=== PATIENT | female | born 1950 | race Hispanic/Latino ===

== ENCOUNTER → 2017-12-11 | Outpatient (CLI) | payer OTHER, MEDICARE ==
[~2017-12-11] MED LIST: ASPI-1012 PO; ATOR40TA71 PO; CHOL100040 PO; GLUC15006 PO; HYDR-309 PO; LOSA100T29 PO; TRAM50TA4 PO
== END | disposition home or self-care (01) ==
LOC: RAH 10:19
PROVIDERS: ATTEND Family Medicine
DX: Z01.812 Encounter for preprocedural laboratory examination (principal)
CPT/HCPCS: 71046

== ENCOUNTER 2017-12-25 07:38 | Observation (INO) | payer OTHER, MEDICARE ==
[2017-12-24 15:10] LABS: APPEARANCE,URINE Clear (CLEAR); BILIRUBIN,URINE Negative (NEGATIVE); COLOR,URINE Yellow (YELLOW); GLUCOSE, URINE (UA) Negative (NEGATIVE); KETONES,URINE Negative (NEGATIVE); LEUKOCYTE ESTERASE ,URINE Small (NEGATIVE); NITRATE,URINE Negative (NEGATIVE); OCCULT BLOOD,URINE Moderate (NEGATIVE); PROTEIN,URINE Negative (NEGATIVE)
[2017-12-24 15:29] VITALS: BP 145/70
[2017-12-24 15:40] LABS: BACTERIA,URINE Few /HPF (None Seen); RBC,URINE 0-1 /HPF (0-1); SQUAMOUS EPITHELIAL CELL,UR 0-2 /HPF (0-2); WBC,URINE 0-1 /HPF (0-1)
[2017-12-25] VITALS (23 sets, daily range): BP systolic 111–154; BP diastolic 56–74
[~2017-12-25] VITALS: Ht 153.7 cm; Wt 65.9 kg
[~2017-12-25 07:38] MED LIST changes: -ASPI-1012 PO; -HYDR-309 PO
[2017-12-25] MEDS ORDERED: LACTATED RINGERS 1000ML 1,000 ML IV ONE (08:00)
[2017-12-25] MEDS ORDERED: WATER FOR INJECTION,STERILE 20 ML VIAL IJ ONE (08:00)
[2017-12-25] MEDS: CEFAZOLIN SODIUM 1 GM VIAL IVP ONE ×2 (08:18→10:45)
[2017-12-25] MEDS ORDERED: CELECOXIB 200 MG CAP ONE (08:24)
[2017-12-25] MEDS ORDERED: ACETAMINOPHEN EXTRA STRENGTH 500 MG TABLET ONE (08:24)
[2017-12-25] MEDS ORDERED: METOCLOPRAMIDE 10 MG/2 ML VIAL ONE (08:24)
[2017-12-25] MEDS ORDERED: OXYCODONE HCL 10 MG TAB.SR.12H PO ONE (08:25)
[2017-12-25] MEDS ORDERED: CEFAZOLIN SODIUM 1 GM VIAL ONE (08:30)
[2017-12-25] MEDS ORDERED: TRANEXAMIC ACID 1000MG/10ML IV ONE (08:30)
[2017-12-25] MEDS: BUPIVACAINE/EPI/PF 0.25% 30ML VIAL IJ SCH ×2 (09:15→11:22)
[2017-12-25] MEDS ORDERED: FENTANYL CITRATE PF 50 MCG/1 ML 2ML VIAL ONE ×2 (09:51→11:08)
[2017-12-25] MEDS ORDERED: LIDOCAINE PF 2% 5ML ABBOJECT ONE (09:51)
[2017-12-25] MEDS ORDERED: DEXAMETHASONE SOD PHOSPHATE 10MG/ML 1ML VIAL ONE (09:51)
[2017-12-25] MEDS ORDERED: ONDANSETRON HCL 4 MG/2 ML VIAL ONE (09:51)
[2017-12-25] MEDS ORDERED: NEOSTIGMINE 5MG/5ML SYR IV ONE (09:51)
[2017-12-25] MEDS ORDERED: PROPOFOL 10 MG/ML 20ML VIAL IV ONE (09:51)
[2017-12-25] MEDS ORDERED: GLYCOPYRROLATE 0.2 MG/ML 5 ML VIAL ONE (09:51)
[2017-12-25] MEDS ORDERED: MIDAZOLAM HCL 1 MG/ML 2ML VIAL ONE (09:52)
[2017-12-25] MEDS ORDERED: METOPROLOL TARTRATE 1 MG/ML 5ML VIAL IV ONE (11:27)
[2017-12-25] MEDS ORDERED: POTASSIUM CHLORIDE 20MEQ/100ML 100 ML IV PRN (12:30)
[2017-12-25] MEDS ORDERED: CALCIUM CARBONATE 500 MG TABLET PO PRN (12:30)
[2017-12-25] MEDS ORDERED: POTASSIUM CHLORIDE 20 MEQ ERTAB PO PRN (12:30)
[2017-12-25] MEDS ORDERED: TEMAZEPAM 15 MG CAPSULE PO PRN (12:30)
[2017-12-25] MEDS ORDERED: OXYCODONE HCL 5 MG TAB PO PRN ×2 (12:30)
[2017-12-25] MEDS ORDERED: DiphenhydrAMINE HCL 50 MG/ML VIAL IVP PRN (12:30)
[2017-12-25] MEDS ORDERED: LIDOCAINE HCL-MPF 1% 2ML VIAL IVP PRN (12:30)
[2017-12-25] MEDS ORDERED: KETOROLAC TROMETHAMINE 15MG/ML IV PRN (12:30)
[2017-12-25] MEDS ORDERED: TRAMADOL HCL 50 MG TABLET PO PRN ×2 (12:30→19:15)
[2017-12-25] MEDS ORDERED: POTASSIUM CHLORIDE 10% ELIXIR 20 MEQ/15 ML UDCUP PO PRN (12:30)
[2017-12-25] MEDS ORDERED: FERROUS FUMARATE 324 MG TABLET PO PRN (12:30)
[2017-12-25] MEDS ORDERED: ONDANSETRON HCL 4 MG/2 ML VIAL IVP PRN (12:30)
[2017-12-25] MEDS ORDERED: MEPERIDINE-PF 25 MG/ML SYG ONE ×2 (13:08→13:28)
[2017-12-25] MEDS: SODIUM CHLORIDE 0.9% 1000ML 1,000 ML IV SCH ×2 (14:10→22:43)
[2017-12-25] MEDS: ACETAMINOPHEN EXTRA STRENGTH 500 MG TABLET PO SCH ×2 (14:11→20:48)
[2017-12-25] MEDS: CEFAZOLIN SODIUM 1 GM VIAL IVP SCH (17:29)
[2017-12-25] MEDS ORDERED: CEFAZOLIN 2GM / 50 ML 50 ML IV SCH (17:30)
[2017-12-25] MEDS: ASPIRIN 325 MG TABLET PO SCH (20:47)
[2017-12-25] MEDS: PREGABALIN 25 MG CAP PO SCH (20:47)
[2017-12-25] MEDS: FAMOTIDINE 20MG TAB 20 MG TAB PO SCH (20:47)
[2017-12-25] MEDS: CELECOXIB 200 MG CAP PO SCH (20:48)
[2017-12-26] MEDS: CEFAZOLIN SODIUM 1 GM VIAL IVP SCH (01:20)
[2017-12-26] MEDS: ACETAMINOPHEN EXTRA STRENGTH 500 MG TABLET PO SCH ×2 (04:32→12:04)
[2017-12-26 04:55] VITALS: BP 125/58
[2017-12-26 05:46] LABS: HEMATOCRIT 29.3 % (36-48); MEAN CORPUSCULAR HEMOGLOBIN 26.5 pg (27.0-33.0); MEAN CORPUSCULAR HGB CONC 33.4 g/dL (32.0-36.0); MEAN CORPUSCULAR VOLUME 79.4 fL (79-99); PLATELET COUNT (AUTO) 285 K/uL (130-400); RED BLOOD CELL COUNT(AUTO) 3.69 MIL/uL (4.00-5.50); WHITE BLOOD COUNT (AUTO) 13.1 K/uL (4.8-10.8)
[2017-12-26 05:53] LABS: CREATININE 0.7 mg/dL (0.5-1.5)
[2017-12-26] MEDS: SODIUM CHLORIDE 0.9% 1000ML 1,000 ML IV SCH (08:21)
[2017-12-26 08:24] VITALS: BP 144/68
[2017-12-26] MEDS: CELECOXIB 200 MG CAP PO SCH (08:55)
[2017-12-26] MEDS: PREGABALIN 25 MG CAP PO SCH (08:55)
[2017-12-26] MEDS: FAMOTIDINE 20MG TAB 20 MG TAB PO SCH (08:55)
[2017-12-26] MEDS: ASPIRIN 325 MG TABLET PO SCH (08:55)
[2017-12-26] MEDS ORDERED: **HM**Cholecalciferol (Vitamin D3) (Vitamin D3) 1,000 UNIT PO SCH (09:00)
[2017-12-26] MEDS ORDERED: ATORVASTATIN CALCIUM 40 MG TABLET PO SCH (09:00)
[2017-12-26] MEDS ORDERED: POLYETHYLENE GLYCOL 3350 17 GM POWD.PACK PO SCH (09:00)
[2017-12-26] MEDS ORDERED: GLUCOSAMINE HCL 1500 MG PO SCH (09:00)
[2017-12-26] MEDS ORDERED: LOSARTAN 100 MG TABLET PO SCH (09:00)
[2017-12-26 11:38] VITALS: BP 145/64
[2017-12-26 16:16] VITALS: BP 151/65
[2017-12-26] MEDS ORDERED: ASPI-1012 PO (18:18)
[2017-12-26] MEDS ORDERED: HYDR-309 PO (18:18)
[2017-12-28] MEDS ORDERED: BISACODYL 10 MG SUPP.RECT RC PRN (12:30)
== END 2017-12-26 19:22 | disposition home health service (06) ==
LOC: DAH 07:38 → DAHIP 07:39 → 4AH 14:03 → EDSTATUS 14:30
PROVIDERS: ADMIT Orthopaedic Surgery; ATTEND Orthopaedic Surgery
DX: M17.12 Unilateral primary osteoarthritis, left knee (principal)
CPT/HCPCS: 27447; 36415; 80048; 81001; 85027; 88305; 88311; 96374; 96376; 97116 ×3; 97161; 97530 ×2; A4218 ×3; A4649 ×5; A4930 ×3; A9272; C1763; C1776; G0378 ×36; G8978; G8979; G8980; G8981; G8982; G8983; J0690 ×4; J1100; J2001; J2175 ×2; J2250; J2405; J2704; J2710; J2765; J3010 ×2; J3490 ×5; J7030; J7120

== ENCOUNTER → 2018-10-27 | Outpatient (CLI) | payer OTHER, MEDICARE ==
[~2018-10-27] MED LIST changes: +ASPI-1012 PO; -GLUC15006 PO; +HYDR-4457 PO; -LOSA100T29 PO; +LOSA100T58 PO; -TRAM50TA4 PO
== END | disposition home or self-care (01) ==
LOC: RAH 08:51
PROVIDERS: ATTEND Family Medicine
DX: Z12.31 Encounter for screening mammogram for malignant neoplasm of breast (principal)
CPT/HCPCS: 77067

== ENCOUNTER → 2019-02-11 | Outpatient (CLI) | payer OTHER | END | disposition home or self-care (01) | LOC: RAH 12:54 | PROVIDERS: ATTEND Family Medicine | DX: Z13.6 Encounter for screening for cardiovascular disorders (principal) | CPT/HCPCS: 75571 ==

== ENCOUNTER → 2020-11-21 | Outpatient (CLI) | payer OTHER, MEDICARE | END | disposition home or self-care (01) | LOC: RAH 08:32 | PROVIDERS: ATTEND Family Medicine | DX: Z12.31 Encounter for screening mammogram for malignant neoplasm of breast (principal) | CPT/HCPCS: 77067 ==

== ENCOUNTER → 2022-06-11 | Outpatient (CLI) | payer OTHER | END | disposition home or self-care (01) | LOC: SHCH 14:45 | PROVIDERS: ATTEND Student in an Organized Health Care Education/Training Program | DX: I07.1 Rheumatic tricuspid insufficiency (principal); I10 Essential (primary) hypertension; E78.5 Hyperlipidemia, unspecified | CPT/HCPCS: 93306 ==

== ENCOUNTER → 2022-12-19 | Outpatient (CLI) | payer OTHER, MEDICARE | END | disposition home or self-care (01) | LOC: RAH 13:43 | PROVIDERS: ATTEND Family Medicine | DX: Z12.31 Encounter for screening mammogram for malignant neoplasm of breast (principal) | CPT/HCPCS: 77067 ==

== ENCOUNTER → 2023-12-24 | Outpatient (CLI) | payer OTHER, MEDICARE ==
[~2023-12-24] MED LIST changes: -LOSA100T58 PO; +LOSA100T59 PO
== END | disposition home or self-care (01) ==
LOC: RAH 09:42
PROVIDERS: ATTEND Family Medicine
DX: Z12.31 Encounter for screening mammogram for malignant neoplasm of breast (principal)
CPT/HCPCS: 77067

== ENCOUNTER 2025-08-02 18:57 | Emergency (ER) | payer OTHER, MEDICARE ==
[~2025-08-02] VITALS: Ht 154.9 cm; Wt 63.5 kg
--- NOTE | 2025-08-02 20:06 | HMCIMG ---
EXAM: CT Cervical Spine Without IV contrast. CLINICAL HISTORY: Patient presents with fall and head trauma. TECHNIQUE: Axial computed tomography images of the cervical spine without intravenous contrast. Sagittal and coronal reformatted images were generated. COMPARISON: None provided. FINDINGS: ALIGNMENT: Straightening of the cervical spine with mild reversal of lordosis centered over C5/6. Degenerative 1 mm anterolisthesis of C3 over C4 and 2 mm anterolisthesis of C4 over C5. DEGENERATIVE CHANGES: Small to moderate-sized anterior and posterior endplate spondylosis. Moderate to advanced atlantoaxial degenerative changes. C5/6 moderate to advanced disc height loss with degenerative endplate irregularities. Multilevel moderate to advanced facet arthrosis. No significant canal stenosis or neural foraminal narrowing is evident. SOFT TISSUES: The prevertebral soft tissues are within normal limits. Thorax demonstrates bilateral apical zone atelectatic changes. The thyroid and brain are unremarkable to the extent demonstrated. BONES: No acute fracture or aggressive appearing osseous lesion. IMPRESSION: No acute fracture. Multilevel degenerative changes in the cervical spine, including moderate to advanced atlantoaxial degeneration, C5/6 disc height loss with endplate irregularities, multilevel facet arthrosis, and anterolisthesis at C3/4 and C4/5. Mild reversal of cervical lordosis centered at C5/6. /[place]
--- NOTE | 2025-08-02 20:08 | HMCIMG ---
EXAM: CT Head Without IV contrast. CLINICAL HISTORY: Patient presents with a fall and head trauma. TECHNIQUE: Axial computed tomography images of the head/brain without intravenous contrast. COMPARISON: None provided. FINDINGS: BRAIN: 1.6 x 5 cm right frontal scalp hematoma. Moderate cortical volume loss with mild chronic microvascular ischemic changes. Right basal ganglia chronic lacunar infarct. No evidence of acute hemorrhage. No mass lesion. No CT evidence for acute territorial infarct. No midline shift or extra-axial collections. VENTRICLES: No hydrocephalus. ORBITS: The orbits are unremarkable. SINUSES AND MASTOIDS: The paranasal sinuses and mastoid air cells are clear. BONES: No fracture. SOFT TISSUES: Unremarkable. IMPRESSION: No acute intracranial abnormality. 1.6 x 5 cm right frontal scalp hematoma. Mild generalized brain atrophy and chronic microvascular ischemic white matter disease. Right basal ganglia chronic lacunar infarct. /[place]
--- NOTE | 2025-08-02 20:52 | ERN ---
ED Note History of Present Illness Stated Complaint: HEAD INJURY Chief Complaint: Mechanical Fall Time Seen by MD: 19:09 Time Seen by Midlevel: 19:09 Dictation: The patient is a 74-year-old female with a history of hypertension, hyperlipidemia who presents to the emergency department with complaints of headache after an accidental trip and fall around 4:30 p.m.. Patient reports that she tripped over a carpet causing her fall forward and hit her head on a metal pole from the door. Patient denies any LOC, denies any nausea or vomiting, denies any use of blood thinners. Patient denies any neck pain, denies any back pain, denies any abdominal pain, denies any extremity pain or any other injuries in the fall. Allergies: Coded Allergies: No Known Drug Allergies (Unverified Allergy, Unknown, 12/24/17) Home Meds Active Scripts Hydrocodone/Acetaminophen (Angora 5-325 Tablet) 1 Each Tablet, 1-2 EACH PO Q6H for PAIN, #90 TAB Prov:GISSELL GROVE MD 12/26/17 Aspirin (ASPIRIN) 325 Mg Tablet, 325 MG PO BID, #40 TAB Prov:GISSELL GROVE MD 12/26/17 Reported Medications Losartan Potassium (Losartan Potassium) 100 Mg Tablet, 100 MG PO DAILY, TAB 12/24/17 Cholecalciferol (Vitamin D3) (Vitamin D3) 1,000 Unit Capsule, 1000 UNIT PO DAILY, CAP 12/24/17 Atorvastatin Calcium (Atorvastatin Calcium) 40 Mg Tablet, 40 MG PO DAILY, TAB 12/24/17 Past Medical History Past Medical History: High Cholesterol, Heart Disease, Hypertension Surgical History: Cholecystectomy, Other Surgical History Other: RT KNEE RN Note Reviewed/Agreed w/PFSH: Yes Review of System Dictation Constitutional: Negative for fever,chills, and weight loss Eyes: Negative for injury, pain,redness, and discharge ENT: Negative for injury,pain or swelling Cardiovascular: Negative for chest pain, palpitations, and edema Respiratory: Negative for shortness of breath, cough, and wheezing, Abdomen/GI: Negative for abdominal pain, nausea, vomiting, diarrhea, and constipation Back: Negative for injury and pain : Negative for injury, bleeding and discharge MS/Extremity: Negative for injury and deformity Skin: Negative for rash, and discoloration Neuro: Negative for , weakness, numbness, tingling, and seizure Positive for headache Psych: Negative for suicide ideation, homicidal ideation, and hallucinations Initial Vital Sign VS Vital Signs Date Time Temp Pulse Resp B/P (MAP) Pulse Ox O2 Delivery O2 Flow Rate FiO2 08/02/25 18:58 97.9 57 16 172/82 99 Room Air 0 08/02/25 19:40 21 Physical Exam Dictation Vital Signs reviewed General Appearance: Alert, oriented x 3, no acute distress, well developed, nourished. Head and Face: non-traumatic. Eyes: PERRL, pink conjunctivas, eyelid no trauma, anterior chamber with arcus senilis. Ears: Pinnas intact and no signs of trauma or erythema ear canals clear and no discharge TM no erythema Nose: No discharge, no bleeding. Oropharynx: Mouth normal, tongue pink. pharynx clear,no erythema, tonsils no exudates, no abscesses noted, mucous membrane moist Neck: Supple, non-tender, no thyromegaly, no masses, no JVD, no bruits Breast:Deferred Chest:No tenderness, no crepitus, no paradoxical movement, no retractions Lungs:Clear, well-ventilated, symmetric, no rales, no wheezing, no rhonchi, no stridor, good breath sounds bilaterally Heart: Regular rate, regular rhythm, no murmur, no gallops Vascular: no peripheral edema, Abdomen: Soft, positive bowel sounds, nondistended, no guarding, nontender, no rebound, no masses no hepatomegaly, no splenomegaly, no Rose's sign, no hernias. Rectal: Deferred Genital: Deferred Neurological: Normal speech, motor function intact, sensory function intact Musculoskeletal: Neck nontender, full range of motion, back nontender, full range of motion, Extremities: nontender, full range of motion Skin: Color pink, dry, no turgor, no rash, no lacerations, no contusions.small superficial abrasion to right cheek,1cm no active bleeding, hematoma to right forehead Lymphatic: Deferred Results (Laboratory/Radiology) Laboratory/Radiology REASON: fall head trauma ORDERING PHYSICIAN: GERDA ABAD PROCEDURE: HEAD WO - CT HEAD/BRAIN W/O CONTRAST ADDENDUM REPORT ADDENDUM: Results were shared by telephone at 09:33 PM EST on 12-08-2025 and acknowledged by the GAS BRAZER Zack Garcia /[place] EXAM: CT Head Without IV contrast. CLINICAL HISTORY: Patient presents with a fall and head trauma. TECHNIQUE: Axial computed tomography images of the head/brain without intravenous contrast. COMPARISON: None provided. FINDINGS: BRAIN: 1.6 x 5 cm right frontal scalp hematoma. Moderate cortical volume loss with mild chronic microvascular ischemic changes. Right basal ganglia chronic lacunar infarct. No evidence of acute hemorrhage. No mass lesion. No CT evidence for acute territorial infarct. No midline shift or extra-axial collections. VENTRICLES: No hydrocephalus. ORBITS: The orbits are unremarkable. SINUSES AND MASTOIDS: The paranasal sinuses and mastoid air cells are clear. BONES: No fracture. SOFT TISSUES: Unremarkable. IMPRESSION: No acute intracranial abnormality. 1.6 x 5 cm right frontal scalp hematoma. Mild generalized brain atrophy and chronic microvascular ischemic white matter disease. Right basal ganglia chronic lacunar infarct. /[place] REASON: fall head trauma ORDERING PHYSICIAN: GERDA ABAD PROCEDURE: C SPIN WO - CT CERVICAL SPINE W/O CONTRAST ADDENDUM REPORT ADDENDUM: Results were shared by telephone at 09:33 PM EST on 08-02-2025 and acknowledged by the GAS BRAZER Zack Garcia /[place] EXAM: CT Cervical Spine Without IV contrast. CLINICAL HISTORY: Patient presents with fall and head trauma. TECHNIQUE: Axial computed tomography images of the cervical spine without intravenous contrast. Sagittal and coronal reformatted images were generated. COMPARISON: None provided. FINDINGS: ALIGNMENT: Straightening of the cervical spine with mild reversal of lordosis centered over C5/6. Degenerative 1 mm anterolisthesis of C3 over C4 and 2 mm anterolisthesis of C4 over C5. DEGENERATIVE CHANGES: Small to moderate-sized anterior and posterior endplate spondylosis. Moderate to advanced atlantoaxial degenerative changes. C5/6 moderate to advanced disc height loss with degenerative endplate irregularities. Multilevel moderate to advanced facet arthrosis. No significant canal stenosis or neural foraminal narrowing is evident. SOFT TISSUES: The prevertebral soft tissues are within normal limits. Thorax demonstrates bilateral apical zone atelectatic changes. The thyroid and brain are unremarkable to the extent demonstrated. BONES: No acute fracture or aggressive appearing osseous lesion. IMPRESSION: No acute fracture. Multilevel degenerative changes in the cervical spine, including moderate to advanced atlantoaxial degeneration, C5/6 disc height loss with endplate irregularities, multilevel facet arthrosis, and anterolisthesis at C3/4 and C4/5. Mild reversal of cervical lordosis centered at C5/6. /[place] Labs Reviewed?: Yes ED Course ED Course Orders Procedure Category Date Status Time Ct Head/Brain W/O CT 08/02/25 Resulted Contrast 19:14 Acetaminophen 500mg PHA 08/02/25 Complete Tab (Tylenol 500mg T 19:30 Ct Cervical Spine W/O CT 08/02/25 Resulted Contrast 19:14 Current Medications Medications (Trade) Dose Ordered Sig/Ana Maria Route PRN Reason Start Time Stop Time Status Last Admin Dose Admin Acetaminophen (TYLenol 500MG TAB) 1,000 mg ONCE ONCE PO 08/02/25 19:30 08/02/25 19:31 DC Vital Signs Date Time Temp Pulse Resp B/P (MAP) Pulse Ox O2 Delivery O2 Flow Rate FiO2 08/02/25 20:47 97.9 57 17 162/73 98 Room Air* 0 21 08/02/25 19:40 97.9 56 17 177/76 100 Room Air* 0 21 08/02/25 18:58 97.9 57 16 172/82 99 Room Air 0 Medical Decision Making MDM The patient is a 74-year-old female with a history of hypertension, hyperlipidemia who presents to the emergency department with complaints of headache after an accidental trip and fall around 4:30 p.m.. Patient reports that she tripped over a carpet causing her fall forward and hit her head on a metal pole from the door. Patient denies any LOC, denies any nausea or vomiting, denies any use of blood thinners. Patient denies any neck pain, denie s any back pain, denies any abdominal pain, denies any extremity pain or any other injuries in the fall. CT head showed no acute intracranial abnormality. 1.6 x 5 cm right frontal scalp hematoma. Mild generalized brain atrophy and chronic microvascular ischemic white matter disease. CT C-spine showed no acute fractures. I discussed with the patient the possibility of admission for observation. At this time the patient does not want to be admitted and would like to go home and follow up with her PCP instead. Patient currently with no dizziness, no nausea or vomiting. Patient neurologically intact, stable vital signs. Patient am bulatory in no acute distress. Patient will be discharge to follow up with PCP. Differential diagnosis: Epidural hematoma, subdural hematoma, scalp hematoma, C-spine fracture Need for hospitalization: Patient does not meet criteria for hospitalization. There are no social concerns with this patient. DX & DISP Disposition: Discharge Departure Impression: Primary Impression: Scalp hematoma Additional Impression: Ground-level fall Condition: Stable Additional Instructions: Your CT scan did not show any acute intracranial abnormality. You do have a scalp hematoma. Continue applying ice to the area. you can continue taking Tylenol as needed for the pain. Follow up with your PCP in 1-2 days. Avoid prolong screen time. avoid any further activity that can further cause injury. If you develop severe vomiting, dizziness or if anything worsens please return to ER. FOLLOW-UP WITH PRIMARY CARE PROVIDER IN 1 TO 2 DAYS. TAKE MEDICATIONS DIRECTED HERE IN THE EMERGENCY ROOM. OKAY TO CONTINUE HOME MEDICATIONS UNLESS OTHERWISE DISCUSSED DURING YOUR VISIT IN THE EMERGENCY ROOM TODAY. RETURN TO YOUR NEAREST EMERGENCY ROOM IF SYMPTOMS WORSEN OR IF THERE IS NO IMPROVEMENT. CALL 911 IF YOU NEED IMMEDIATE ASSISTANCE. TAKE TYLENOL [id number] NEEDED AND IF NO CONTRAINDICATIONS ARE PRESENT. INCREASE ORAL HYDRATION. A WOUND CULTURE OR URINE CULTURE WAS ORDERED HERE IN THE EMERGENCY ROOM DEPARTMENT PLEASE FOLLOW-UP WITH PRIMARY CARE PROVIDER AND ADVISE THEM TO GET REPEAT PORTS FROM OUR FACILITY. IF YOU HAD ANY OMKAR WRAP/SPLINTS THAT WERE APPLIED HERE, PLEASE DO NOT REMOVE THEM UNTIL YOU SEE YOUR PRIMARY CARE OR SPECIALTY. Referrals: HEATHER CAMPOS MD (PCP) Time of Disposition: 21:54 I have reviewed the case, and I agree with, Diagnosis and Plan GERDA ABAD [employer] Aug 02, 2025 20:52
[2025-08-02 22:00] VITALS: BP 158/74; PULSE 59; RESP 17; TEMP 97.9; O2SAT 99
== END 2025-08-02 22:04 | disposition home or self-care (01) ==
LOC: EDH 18:57
DX: S00.03XA Contusion of scalp, initial encounter (principal); I11.9 Hypertensive heart disease without heart failure; E78.00 Pure hypercholesterolemia, unspecified; Z79.899 Other long term (current) drug therapy; Z79.82 Long term (current) use of aspirin; Z86.73 Personal history of transient ischemic attack (TIA), and cerebral infarction without residual deficits; Z90.49 Acquired absence of other specified parts of digestive tract; W18.09XA Striking against other object with subsequent fall, initial encounter; Y93.89 Activity, other specified; Y92.89 Other specified places as the place of occurrence of the external cause; Y99.8 Other external cause status
CPT/HCPCS: 70450; 72125; 99284